=== PATIENT | female | born 1970 | race Caucasian/White ===

== ENCOUNTER 2017-01-26 15:28 | Emergency (ER) | payer BC, OTHER ==
--- NOTE | 2017-01-26 15:54 | CPEKG ---
Heart Rate: 79 RR Interval: 759 P-R Interval: 128 QRSD Interval: 80 QT Interval: 388 QTC Interval: 445 P [place]: 48 QRS [place]: 19 T Wave [place]: 43 EKG Severity - NORMAL ECG - EKG Impression: SINUS RHYTHM Electronically Signed By: Staci Burgos 26-Jan-2017 23:18:08
[2017-01-26 16:08] LABS: % IMMATURE GRANULYOCYTES 0.3 % (0.0-1.1); ABSOLUTE IMMATURE GRANULOCYTES 0.03 10^3/uL (0.00-0.10); ADD DIFF? NO; ADD MORPH? NO; ADD SCAN? NO; ATYPICAL LYMPHOCYTE FLAG 0 (0-99); FRAGMENT RBC FLAG 0 (0-99); HEMATOCRIT 42.6 % (38.0-47.0); HEMOGLOBIN 15.3 g/dL (12.6-16.3); LEFT SHIFT FLG 0 (0-99); LIPEMIA HEMOLYSIS FLAG 90 (0-99); MEAN CELL HEMOGLOBIN CONCENTR. 35.9 g/dL (32.4-36.7); MEAN CELL VOLUME 86.4 fL (81.5-99.8); MEAN PLATELET VOLUME 9.6 fL (8.7-11.7); PLATELET CLUMPS FLAG 20 (0-99); PLATELET COUNT 304 10^3/uL (150-400); RED BLOOD CELL COUNT 4.93 10^6/uL (4.18-5.33); RED CELL DISTRIBUTION WIDTH 12.8 % (11.5-15.2)
[2017-01-26 16:11] LABS: ALANINE AMINOTRANSFERASE 15 IU/L (9-52); ALBUMIN 4.7 g/dL (3.5-5.0); ALKALINE PHOSPHATASE 63 IU/L (38-126); ANION GAP 14 mEq/L (8-16); ASPARTATE AMINOTRANSFERASE 23 IU/L (14-46); BILIRUBIN,TOTAL 0.4 mg/dL (0.1-1.4); CALCIUM 9.8 mg/dL (8.5-10.4); CARBON DIOXIDE 21 mEq/l (22-31); CHLORIDE 106 mEq/L (97-110); CREATININE 1.1 mg/dL (0.6-1.0); GLOMERULAR FILTRATION RATE 53; GLUCOSE 82 mg/dL (70-100); POTASSIUM 3.8 mEq/L (3.5-5.2); SODIUM 141 mEq/L (134-144); TOTAL PROTEIN 7.5 g/dL (6.3-8.2)
--- NOTE | 2017-01-26 16:42 | EDPHY ---
H & P Stated Complaint: Heart feels fluttery with irregular beats since yesterday. Time Seen by Provider: 01/26/17 16:14 HPI/ROS: CHIEF COMPLAINT: Heart fluttering HISTORY OF PRESENT ILLNESS: The patient is a 46 y/o female arriving with her complaining of "heart fluttering" episodes onset Monday, 2 days ago. She first noticed symptoms while sitting and drinking tea two mornings ago. She describes the sensation as "a light fluttering accompanied by occasional pauses and then a big heart beat." This resolved 2 hours after onset after eating lunch and did not recur yesterday. This morning while at work she developed the same symptoms. They waxed and waned through the day, but did not resolve. She saw an RN at her work site who described her pulse as irregular and elevated at 109. She denies associated nausea, vomiting, chest pain, dyspnea, fever, recent illness, or other complaints. She reports cutting most caffeine out of her diet a few months ago. She has no prior cardiac history and is normally healthy. REVIEW OF SYSTEMS: Constitutional: No fever, no chills Eyes: No visual changes ENT: No sore throat Respiratory: No cough, no shortness of breath Cardiac: see HPI Gastrointestinal: No nausea, no vomiting, no abdominal pain Genitourinary: No hematuria, no dysuria Musculoskeletal: No leg pain or swelling Skin: No rash Neurological: No headache, no numbness, no weakness Psychiatric: No depression - Personal History LMP (Females 10-55): 8-14 Days Ago Current Tetanus Diphtheria and Acellular Pertussis (TDAP): Yes - Medical/Surgical History PMH: Denies Hx Asthma: No Hx Chronic Respiratory Disease: No Hx Diabetes: No Hx Cardiac Disease: No Hx Renal Disease: No Hx Cirrhosis: No Hx Alcoholism: No Hx HIV/AIDS: No Hx Splenectomy or Spleen Trauma: No Other PMH: Hypothyroid. 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 Headed on a flight to [place] in two weeks. - Physical Exam Exam: General Appearance: Alert, no distress Eyes: Pupils equal and round, no conjunctival pallor or injection ENT, Mouth: Mucous membranes moist Neck: Normal inspection Respiratory: Lungs are clear to auscultation Cardiovascular: Regular rate and rhythm Gastrointestinal: Abdomen is soft and non- tender Neurological: A&O, nonfocal, normal gait Skin: Warm and dry, no rash Extremities: Nontender, no pedal edema Psychiatric: Mood and affect normal Constitutional: Initial Vital Signs Temperature (C) 36.6 C 01/26/17 15:36 Heart Rate 93 01/26/17 15:36 Respiratory Rate 18 01/26/17 15:36 Blood Pressure 122/88 H 01/26/17 15:36 O2 Sat (%) 96 01/26/17 15:36 O2 Delivery Mode Room Air Allergies/Adverse Reactions: codeine Allergy (Verified 01/26/17 15:39) Home Medications: Medication Instructions Recorded [place] Thyroid 01/26/17 Medical Decision Making ED Course/Re-evaluation: This is a healthy 46 y/o female who presents with a 2-day history of intermittent palpitations. She has no known cardiac risk factors. During assessment, she has occasional PVCs on the 4-lead monitor that coincide with her symptoms. Her exam is unremarkable. Basic labs are unremarkable, TSH is pending. The 12 lead EKG was interpreted by myself. Sinus rhythm. See hard copy and/or "tracemaster" electronic copy for interpretation. Patient is hemodynamically stable. She will be discharged home in good condition with recommendation to follow up with her PCP or orthopedic shoe fitter to discuss possible use of a Holter monitor for her symptoms. I've also recommended increasing fluid intake in case her PVCs are related to some mild dehydration. She is comfortable with discharge plan. Return precautions discussed. Differential Diagnosis: Differential diagnosis includes though it is not limited to pneumonia, pneumothorax, pulmonary embolism, aortic dissection, pericarditis, acute coronary syndrome. - Data Points Laboratory Results: Laboratory Results 01/26/17 15:50 01/26/17 15:50 01/26/17 01/26/17 01/26/17 15:50 15:50 15:30 WBC 10.11 10^3/uL H 10^3/uL (3.80-9.50) RBC 4.93 10^6/uL 10^6/uL (4.18-5.33) Hgb 15.3 g/dL g/dL (12.6-16.3) Hct 42.6 % % (38.0-47.0) MCV 86.4 fL fL (81.5-99.8) MCH 31.0 pg pg (27.9-34.1) MCHC 35.9 g/dL g/dL (32.4-36.7) RDW 12.8 % % (11.5-15.2) Plt Count 304 10^3/uL 10^3/uL (150-400) MPV 9.6 fL fL (8.7-11.7) Neut % (Auto) 66.4 % % (39.3-74.2) Lymph % (Auto) 25.2 % % (15.0-45.0) [place] % (Auto) 7.2 % % (4.5-13.0) Eos % (Auto) 0.5 % L % (0.6-7.6) Baso % (Auto) 0.4 % % (0.3-1.7) Nucleat RBC Rel Count 0.0 % % (0.0-0.2) Absolute Neuts (auto) 6.71 10^3/uL H 10^3/uL (1.70-6.50) Absolute Lymphs (auto) 2.55 10^3/uL 10^3/uL (1.00-3.00) Absolute Monos (auto) 0.73 10^3/uL 10^3/uL (0.30-0.80) Absolute Eos (auto) 0.05 10^3/uL 10^3/uL (0.03-0.40) Absolute Basos (auto) 0.04 10^3/uL 10^3/uL (0.02-0.10) Absolute Nucleated RBC 0.00 10^3/uL 10^3/uL (0-0.01) Immature Gran % 0.3 % % (0.0-1.1) Immature Gran # 0.03 10^3/uL 10^3/uL (0.00-0.10) Sodium 141 mEq/L mEq/L (134-144) Potassium 3.8 mEq/L mEq/L (3.5-5.2) Chloride 106 mEq/L mEq/L (97-110) Carbon Dioxide 21 mEq/l L mEq/l (22-31) Anion Gap 14 mEq/L mEq/L (8-16) BUN 16 mg/dL mg/dL (7-23) Creatinine 1.1 mg/dL H mg/dL (0.6-1.0) Estimated GFR 53 Glucose 82 mg/dL mg/dL (70-100) Calcium 9.8 mg/dL mg/dL (8.5-10.4) Total Bilirubin 0.4 mg/dL mg/dL (0.1-1.4) AST 23 IU/L IU/L (14-46) ALT 15 IU/L IU/L (9-52) Alkaline Phosphatase 63 IU/L IU/L (38-126) Total Protein 7.5 g/dL g/dL (6.3-8.2) Albumin 4.7 g/dL g/dL (3.5-5.0) TSH 2.460 uIU/mL uIU/mL (0.465-4.680) Departure - Departure Disposition: Home, Routine, Self-Care Clinical Impression: PVC (premature ventricular contraction), Palpitation Condition: Good Instructions: Palpitations (ED) Additional Instructions: Increase fluid intake. Please follow up with your primary care provider next week to discuss utility of a 24 or 48-hour Holter monitor. Return to the ED for any worsening of condition. Referrals: SID[facility] GARRIDO [Other] - As per Instructions Stand Alone Forms: Statement of Treatment, Work Excuse Report Scribed for: Staci Burgos Report Scribed by: Summer lFynn Date of Report: 01/26/17 Time of Report: 16:41 Physician Review and Approval Statement: 01/26/17 16:41 Portions of this note were transcribed by a medical records coder. I personally performed a history, physical exam, medical decision making, and confirmed accuracy of information the transcribed note.
[2017-01-26 17:00] VITALS: BP 128/70; PULSE 81; RESP 16; TEMP 98.6; O2SAT 98
== END 2017-01-26 17:04 | disposition home or self-care (01) ==
DX: I49.3 Ventricular premature depolarization (principal)